=== PATIENT | female | born 1940 | race Caucasian/White ===

== ENCOUNTER 2019-04-01 06:28 | Inpatient (IN) | payer MEDICARE, OTHER ==
[2019-03-24 18:45] VITALS: Ht 168.9 cm; Wt 70.1 kg
[~2019-04-01] VITALS: Ht 168.9 cm; Wt 70.1 kg
[2019-04-01] VITALS (22 sets, daily range): BP systolic 116–168; BP diastolic 60–86; PULSE 68–104; RESP 13–24
--- NOTE | 2019-04-01 06:07 | HPN ---
Date/Time of Note Date/Time of Note DATE: 04/01/19 TIME: 06:07 Interval H&P Admission Note Pt. seen H&P reviewed: No system changes HELEN DAN MD Apr 01, 2019 06:07
--- NOTE | 2019-04-01 06:11 | OPR ---
Date/Time of Note Date/Time of Note DATE: 04/01/19 TIME: 06:08 Operative Report Procedure Date: Apr 01, 2019 Preoperative Diagnosis Right shoulder rotator cuff tear arthropathy Postoperative Diagnosis 1. 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 Right shoulder acromioclavicular joint primary arthritis 3. Right shoulder massive, unrepairable rotator cuff tear Operation/Procedure Performed 1. Right reverse total shoulder arthroplasty 2. Right open distal clavicular excision 3. Right shoulder injection of PRP solution Surgeon see signature line Home Service Advisor Chandra Bone PA-C Anesthesia Type: general Estimated Blood Loss: 50 - 100 ml's Transfusion none Specimen None Grafts/Implants See op note Complications none Pt Condition Post Procedure: stable Disposition: PACU Procedure Description THERAPY AIDE SURGEON: Chandra Bone PA-C was asked to be present for this case at my request. Assistance was necessary as a result of the highly technical nature of this operation. When performing an open total shoulder replacement, it is critical to have a trained assistant restaurant general manager who is an expert in handling the extremity and assisting the surgeon in tasks such as suture management and knot-tying techniques as well as implants. This assistance cannot be performed by a snow technician, as it is considered an integral part of the procedure and the assistant restaurant general manager should be compensated for his time. PROCEDURE IN DETAIL: Following the administration of general anesthesia supplemented with a peripheral nerve block for postoperative pain control, the patient was examined under anesthesia. This revealed severe stiffness and si gnificant glenohumeral as well as subacromial crepitus. Motion was markedly limited to less than 85 degrees of abduction with 60 degrees of external rotation. The antecubital fossa was then prepped and 60 cc of blood were aspirated. The blood was then subsequently given to the medical detail representative from the company to prepare the PRP solution. The patient was then placed in the beach chair position. Sterile prep and drape was then undertaken of the right upper extremity. An extended deltopectoral incision was then carried through the interval exposing the conjoined tendon and retracting it medially. The superior aspect of the joint was then evaluated. Significant osteophytes were noted in the acromioclavicular joint. The acromioclavicular joint capsule was then entered and the distal clavicle skeletonized for a distance of 10 mm. Severe arthritic changes were noted. An osteotome was then used to resect 10 mm of the distal clavicle. Good decompression was confirmed. The AC joint was irrigated and closed using a #2 interrupted suture. The subscapularis was noted to be partially disrupted superiorly. Very severe arthritic changes were noted with very large peripheral osteophytes and a flattened humeral head. The superior rotator cuff was torn and retracted. The biceps tendon was noted to be subluxed. The intra-articular portion was resected in the distal portion tenodesed to the bicipital groove with multiple #2 sutures. A humeral head osteotomy was then created in the appropriate degree of version and inclination. The humerus was retracted and the glenoid was exposed. Peripheral osteophytes were removed and a complete capsulectomy performed. The central canal of the glenoid was then entered and prepared for a standard Depuy baseplate. A standard Depuy baseplate was then applied with four peripheral screws and solid fixation. A 38 mm glenosphere, which had 2 mm of offset and was eccentric, was then applied, with solid fixation. The humerus was then reamed and prepared for a 12 mm humeral component with a standard metaphyseal component with a 6mm liner. The humeral canal was irrigated and the PRP solution was implanted within the humeral canal. The actual components were implanted with solid fixation. The arm was taken through full range of motion with no evident instability. The joint was then thoroughly irrigated, the deep tissues were approximated using #1 suture followed by closure of the deep layer using 2-0 Monocryl. The skin was closed using 4-0 Monocryl suture, and a Prenio dressing. An Ultrasling was then applied. The patient was awakened and transported to the recovery room in stable condition. Estimated blood loss for this procedure was 100 cc. Radiographs will be obtained in the recovery room. HELEN DAN MD Apr 01, 2019 06:11
[2019-04-01] MEDS ORDERED: VANCOMYCIN 1 GM (PMX) 250 ML IVPB ONE (06:30)
[2019-04-01] MEDS ORDERED: TRANEXAMIC ACID 1GM/100ML(PMX) 100 ML IVPB ONE ×2 (06:30→13:30)
[2019-04-01] MEDS ORDERED: DEXAMETHASONE 1 MG TAB PO ONE (06:30)
[2019-04-01] MEDS ORDERED: BUPIVACAINE 0.5% (SDV) 30 ML, morphine SULFATE (PF) 8 MG, EPINEPHrine 0.3 MG, KETOROLAC... IRR SCH ×7 (06:30)
[2019-04-01] MEDS ORDERED: GABAPENTIN 300 MG CAP PO ONE (06:30)
[2019-04-01] MEDS ORDERED: LACTATED RINGER'S 1,000 ML IV SCH (07:30)
[2019-04-01] MEDS ORDERED: CEFAZOLIN 1 GM INJ ONE (09:00)
[2019-04-01] MEDS ORDERED: PROPOFOL 20 ML ONE (09:00)
[2019-04-01] MEDS ORDERED: FENTAnyl 50 MCG/ML VIAL ONE (09:00)
[2019-04-01] MEDS ORDERED: ROPIVACAINE 0.5 % 30 ML VIAL ONE (09:00)
[2019-04-01] MEDS ORDERED: SEVOFLURANE 15 MIN ONE (09:00)
[2019-04-01] MEDS ORDERED: MIDAZOLAM 1 MG/ML 2 ML INJ ONE (09:00)
[2019-04-01] MEDS ORDERED: ROCURONIUM 50 MG INJ ONE (09:00)
[2019-04-01] MEDS ORDERED: THROMBIN 5000 UNIT VIAL ONE (11:28)
[2019-04-01] MEDS ORDERED: CA CHLORIDE 10% 10 ML SYRINGE ONE (11:28)
[2019-04-01] MEDS ORDERED: POLYMYXIN/BACITRACIN 1L IRRIG ONE (11:28)
[2019-04-01] MEDS ORDERED: BUPIVACAINE 0.5%/EPI (SDV) 30 ML INJ ONE (11:28)
[2019-04-01] MEDS ORDERED: DEXAMETHASONE 4 MG/ML 5 ML INJ ONE (12:17)
[2019-04-01] MEDS ORDERED: METOCLOPRAMIDE 10 MG INJ ONE (12:17)
[2019-04-01] MEDS ORDERED: ONDANSETRON 4 MG INJ ONE (12:17)
[2019-04-01] MEDS ORDERED: KETOROLAC 30 MG INJ ONE (12:17)
--- NOTE | 2019-04-01 12:22 | PREAC ---
Date/Time of Note Date/Time of Note DATE: 04/01/19 TIME: 12:20 Anesthesia Eval and Record Evaluation Time Pre-Procedure Interview DATE: 04/01/19 TIME: 11:30 Age 78 Sex female NPO: 8 hrs Preoperative diagnosis Right Shoulder OA Planned procedure Right Reverse Total Shoulder replacement with excision of the distal Clavicle Past Medical History Past Medical History: Includes Musculoskeletal: Osteoarthritis Surgery & Anesthesia Issues No known issue Meds Anticoagulation: No Beta Judie within 24 hr: No Reason Beta Judie not given: Pt. not on B-Judie No Active Prescriptions or Reported Meds Current Medications Lactated Ringer's 1,000 ml @ 25 mls/hr Q24H IV Last administered on 04/01/19at 08:41; Admin Dose 25 MLS/HR; Start 04/01/19 at 07:30; Stop 04/01/19 at 13:30 Meds reviewed: Yes Allergies Coded Allergies: Penicillins (Verified Allergy, Unknown, 04/01/19) amoxicillin (Verified Adverse Reaction, Unknown, nausea and vomitting, 04/01/19) Allergies Reviewed: Yes Labs/Studies Labs Reviewed: Reviewed by anesthesiologist test: N/A Studies: ECG (NSR), CXR (No acute cardiopulmonary disease noted.) Pre-procedure Exam Last vitals Vital Signs Date Temp Pulse Resp B/P (MAP) Pulse Ox O2 O2 Flow FiO2 Time Delivery Rate 04/01/19 97.6 68 16 137/66 95 Room Air 09:25 (89) Airway: Adequate mouth opening, Adequate thyromental dist Mallampati: Mallampati II Teeth: Normal Lung: Normal Heart: Normal ASA Physical Status ASA physical status: 2 Emergency: None Planned Anesthetic General/MAC: ETT Nerve block: Brachial plexus (right) Planned Pain Management Single shot nerve block, Parenteral pain med Pre-operative Attestations Prior to commencing anesthesia and surgery, the patient was re-evaluated, there was verification of: *The patient's identity *The results of appropriate recent lab work and preoperative vital signs *The above evaluation not changing prior to induction *Anesthetic plan, risk benefits, alternative and complications discussed with patient/family; questions answered; patient/family understands, accepts and wishes to proceed. DANG ELIAS MD Apr 01, 2019 12:22
[2019-04-01] MEDS ORDERED: TRANEXAMIC ACID 1GM/100ML(PMX) 100 ML ONE (12:25)
[2019-04-01] MEDS ORDERED: HYDROmorphONE 1 MG/5 ML IV SYRINGE IV PRN ×2 (12:30)
[2019-04-01] MEDS ORDERED: FENTAnyl 50 MCG/ML VIAL IV PRN ×3 (12:30)
[2019-04-01] MEDS ORDERED: OXYCODONE/ACETAMINOPHEN (5/325) TAB PO PRN (12:30)
[2019-04-01] MEDS ORDERED: ONDANSETRON 4 MG INJ IV PRN ×2 (12:30→13:30)
[2019-04-01] MEDS ORDERED: METOCLOPRAMIDE 10 MG INJ IV PRN (12:30)
[2019-04-01] MEDS ORDERED: hydrALAzine 20 MG INJ IV PRN (12:30)
[2019-04-01] MEDS ORDERED: EPHEDrine 25 MG/5 ML SYG IV PRN (12:30)
[2019-04-01] MEDS ORDERED: DIPHENHYDRAMINE 50 MG INJ IV PRN ×2 (12:30→13:30)
[2019-04-01] MEDS ORDERED: MEPERIDINE 25 MG INJ IV PRN (12:30)
[2019-04-01] MEDS ORDERED: LABETALOL HCL 20MG INJ IV PRN (12:30)
[2019-04-01] MEDS ORDERED: SUGAMMADEX SODIUM 200 MG/2 ML VIAL IV ONE (12:50)
--- NOTE | 2019-04-01 13:16 | PDOCDIS ---
Discharge Instructions DIAGNOSIS Discharge Diagnosis Rotator cuff tear arthropathy CONDITION [id number] Patient Condition: [id number] Good HOME CARE INSTRUCTIONS: [id number] Diet Instructions: [id number] Regular ACTIVITY: [id number] Activity Restrictions: [id number] Slowly Increase Activity [id number] Bathing Restrictions: [id number] Shower FOLLOW UP/APPOINTMENTS Follow-up Plan 2 weeks in the office SCHOOL/WORK RELEASE May return to School/Work with: With Restrictions School/Work Release Comment: 5 pound tabletop usage for 6 weeks HELEN DAN MD Apr 01, 2019 13:16
[2019-04-01] MEDS: HYDROmorphONE 1 MG/5 ML IV SYRINGE IV PRN ×4 (13:29→13:57)
[2019-04-01] MEDS: VANCOMYCIN 500 MG (PMX) 100 ML IVPB SCH (13:30)
[2019-04-01] MEDS ORDERED: MAGNESIUM HYDROXIDE 30ML CUP PO PRN (13:30)
[2019-04-01] MEDS ORDERED: oxyCODONE 5 MG TAB PO PRN ×3 (13:30)
[2019-04-01] MEDS ORDERED: NACL 0.9% 3 ML SYG IV SCH (13:30)
[2019-04-01] MEDS ORDERED: LOPERAMIDE 2 MG CAP PO PRN (13:30)
[2019-04-01] MEDS ORDERED: HYDROmorphONE 1 MG/ML SYG IV PRN (13:30)
[2019-04-01] MEDS ORDERED: ZOLPIDEM 5 MG TAB PO PRN (13:30)
[2019-04-01] MEDS: KETOROLAC 15 MG INJ IV PRN ×2 (15:11→21:06)
[2019-04-01] MEDS: ACETAMINOPHEN 500 MG TAB PO SCH (17:20)
[2019-04-01] MEDS: DEXAMETHASONE 2 MG TAB PO SCH (17:20)
[2019-04-01] MEDS ORDERED: GABAPENTIN 300 MG CAP PO SCH (21:00)
[2019-04-01] MEDS: SENNA/DOCUSATE NA (8.6MG/50MG) TAB PO SCH (21:05)
[2019-04-02] MEDS: DEXAMETHASONE 2 MG TAB PO SCH ×3 (01:20→11:48)
[2019-04-02] MEDS: ACETAMINOPHEN 500 MG TAB PO SCH ×3 (01:20→12:18)
[2019-04-02] MEDS: VANCOMYCIN 500 MG (PMX) 100 ML IVPB SCH (01:22)
[2019-04-02 02:15] VITALS: BP 125/61; PULSE 90; RESP 19
[2019-04-02] MEDS ORDERED: CEPASTAT LOZENGE MT PRN (04:00)
--- NOTE | 2019-04-02 05:30 | DS ---
Date/Time of Note Date/Time of Note DATE: 04/02/19 TIME: 05:30 Discharge Summary Admission/Discharge Info Admit Date/Time Apr 01, 2019 at 13:14 Discharge Date/Time 04/02/2019 Discharge Diagnosis Rotator cuff tear arthropathy Patient Condition: Good Hospital Course Admitted and underwent uncomplicated procedure. Postop day 1 discharge home aft er PT Home Meds No Active Prescriptions or Reported Meds Follow-up Plan 2 weeks in the office Primary Care Provider Not On Staff Doctor HELEN DAN MD Apr 02, 2019 05:30
--- NOTE | 2019-04-02 05:30 | PN ---
Date/Time of Note Date/Time of Note DATE: 04/02/19 TIME: 05:29 Subjective Awake and alert with minimal complaints. Objective Vitals Vital Signs Date Temp Pulse Resp B/P (MAP) Pulse Ox O2 O2 Flow FiO2 Time Delivery Rate 04/02/19 98.7 90 19 125/61 94 02:15 (82) 04/01/19 Nasal 16:00 Cannula 04/01/19 2.0 14:08 Intake and Output 04/01/19 04/01/19 04/02/19 1515:00 23:00 07:00 IntakeIntake Total 1000 ml 680 ml 100 ml OutputOutput Total 50 ml BalanceBalance 950 ml 680 ml 100 ml Wound clean and dry. Neurologically intact. No signs of DVT. Medications Medications Current Medications Senna/Docusate Sodium (Senokot-S) 1 tab BID PO Last administered on 04/01/19at 21:05; Admin Dose 1 TAB; Start 04/01/19 at 21:00 Simethicone (Mylicon) 80 mg TID PRN PO .GAS; Start 04/01/19 at 13:30 Magnesium Hydroxide (Milk Of Mag) 30 ml BID PRN PO .CONSTIPATION; Start 04/01/19 at 13:30 Loperamide HCl (Imodium Cap) 2 mg Q6H PRN PO .DIARRHEA; Start 04/01/19 at 13:30 Dexamethasone (Decadron) 2 mg Q6 PO Last administered on 04/02/19at 01:20; Admin Dose 2 MG; Start 04/01/19 at 18:00; Stop 04/02/19 at 12:01 Gabapentin (Neurontin) 300 mg HS PO Last administered on 04/01/19at 21:05; Admin Dose 300 MG; Start 04/01/19 at 21:00 Acetaminophen (Tylenol Tab) 500 mg Q6 PO Last administered on 04/02/19at 01:20; Admin Dose 500 MG; Start 04/01/19 at 18:00 Oxycodone HCl (Roxicodone) 15 mg Q4H PRN PO .PAIN; Start 04/01/19 at 13:30 Oxycodone HCl (Roxicodone) 10 mg Q4H PRN PO .PAIN; Start 04/01/19 at 13:30 Oxycodone HCl (Roxicodone) 5 mg Q4H PRN PO .PAIN; Start 04/01/19 at 13:30 Hydromorphone HCl (Dilaudid) 1 mg Q4H PRN IV .BREAKTHROUGH PAIN; Start 04/01/19 at 13:30 Ketorolac Tromethamine (Toradol) 15 mg Q6H PRN IV .PAIN Last administered on 04/01/19at 21:06; Admin Dose 15 MG; Start 04/01/19 at 13:30 Ondansetron HCl (Zofran Inj) 4 mg Q6H PRN IV NAUSEA/VOMITING; Start 04/01/19 at 13:30 Diphenhydramine HCl (Benadryl) 25 mg Q6H PRN IV .PRURITUS; Start 04/01/19 at 13:30 Zolpidem Tartrate (Ambien) 10 mg HS PRN PO .INSOMNIA Last administered on 04/02/19at 01:19; Admin Dose 10 MG; Start 04/01/19 at 13:30 IV Flush (NS 3 ml) 3 ml per protocol IV ; Start 04/01/19 at 13:30 Phenol (Cepastat Lozenge) 1 lozenge Q1H PRN MT SORE THROAT; Start 04/02/19 at 04:00 VTE Prophylaxis Risk score (from Nsg)>0 risk: 9 SCD applied (from Nsg): Yes Lines/Catheters IV Catheter Type: Saline Lock Diaz in Place: No Assessment/Plan Assessment/Plan Assessment: Status post reverse total shoulder Plan: Begin PT this morning discharge after HELEN DAN MD Apr 02, 2019 05:29
[2019-04-02] MEDS: KETOROLAC 15 MG INJ IV PRN (07:16)
[2019-04-02 08:29] VITALS: BP 112/57; PULSE 74; RESP 18
[2019-04-02] MEDS: SENNA/DOCUSATE NA (8.6MG/50MG) TAB PO SCH (08:46)
--- NOTE | 2019-04-02 15:32 | PAC ---
Date/Time of Note Date/Time of Note DATE: 04/02/19 TIME: 15:32 Post-Anesthesia Notes Post-Anesthesia Note Last documented vital signs Vital Signs Date Temp Pulse Resp B/P (MAP) Pulse Ox O2 O2 Flow FiO2 Time Delivery Rate 04/02/19 98.1 74 18 112/57 94 Nasal 08:29 (75) Cannula 04/01/19 2.0 14:08 Activity: WNL Respiratory function: WNL Cardiovascular function: WNL Mental status: Baseline Pain reasonably controlled: Yes Hydration appropriate: Yes Nausea/Vomiting absent: Yes DANG ELIAS MD Apr 02, 2019 15:32
== END 2019-04-02 12:45 | disposition home or self-care (01) | DRG 483 ==
LOC: SDS 06:28 → REC 13:14 → MS1 14:06
PROVIDERS: ADMIT Orthopaedic Surgery; ATTEND Orthopaedic Surgery
PROC: 0PB90ZZ Excision of Right Clavicle, Open Approach (ICD-10-PCS; 2019-04-01)
PROC: 0RRJ00Z Replacement of Right Shoulder Joint with Reverse Ball and Socket Synthetic Substitute, Open Approach (ICD-10-PCS; principal; 2019-04-01 11:30)
DX: M19.011 Primary osteoarthritis, right shoulder (principal); M75.101 Unspecified rotator cuff tear or rupture of right shoulder, not specified as traumatic
CPT/HCPCS: 86999; 88304; 88311; 97161; 97530; C1776; J0171; J0690; J0735; J1100; J1170; J1885; J2250; J2274; J2405; J2765; J2795; J3010; J3370